=== PATIENT | male | born 1965 | race Caucasian/White ===

== ENCOUNTER 2017-11-09 02:52 | Emergency (ER) | payer OTHER ==
[~2017-11-09] VITALS: Ht 188 cm; Wt 88.5 kg
[2017-11-09] MEDS ORDERED: ONDANSETRON HCL INJ 2 MG/ML VIAL IV STA (03:15)
[2017-11-09] MEDS ORDERED: SODIUM CHLORIDE 0.9% 1000ML 1,000 ML IV SCH ×2 (03:15→04:15)
[2017-11-09] MEDS ORDERED: KETOROLAC TROMETHAMINE 30 MG/ML VIAL IV STA (03:20)
[2017-11-09] MEDS ORDERED: FENTANYL CITRATE/PF 100MCG/2 ML INJ IV ONE (04:30)
--- NOTE | 2017-11-09 05:08 | Diagnostic Imaging Report ---
EXAM: CT Abdomen and Pelvis WITH contrast INDICATION: Upper abdominal pain COMPARISON: None. TECHNIQUE: Abdomen and pelvis were scanned utilizing a multidetector helical scanner from the lung base to the pubic symphysis after administration of IV contrast. Coronal and sagittal reformations were obtained. Routine protocol was performed. Scan was performed when during portal venous phase. IV CONTRAST: 100 mL of Isovue-[id number] ORAL CONTRAST: Water RADIATION DOSE: Total DLP: 827.43 mGy*cm Estimated effective dose: (DLP x 0.015 x size factor) mSv COMPLICATIONS: None FINDINGS: LINES and TUBES: None. LOWER THORAX: Unremarkable HEPATOBILIARY: There is focal fatty infiltration adjacent to the falciform ligament. No focal hepatic lesions. No biliary ductal dilation. GALLBLADDER: No radio-opaque stones or sludge. No wall thickening. SPLEEN: No splenomegaly. PANCREAS: No focal masses or ductal dilatation. ADRENALS: No adrenal nodules KIDNEYS/URETERS: Kidneys enhance symmetrically. No hydronephrosis. No cystic or solid mass lesions. No stones. GI TRACT: No abnormal distention, wall thickening, or evidence of bowel obstruction. Appendix is normal. PELVIC ORGANS/BLADDER: Unremarkable. LYMPH NODES: No lymphadenopathy. VESSELS: There is mild atherosclerotic disease in the aorta and major arterial branches. PERITONEUM / RETROPERITONEUM: No free air or fluid. BONES: There are mild degenerative changes in the lumbar spine. SOFT TISSUES: Unremarkable. IMPRESSION: 1. No evidence of acute intra-abdominal or pelvic abnormality. Signed by: Dr. James Valenzuela M.D. on 11/09/2017 5:05 AM
[2017-11-09] MEDS ORDERED: FAMOTIDINE 20 MG/2 ML VIAL IV STA (05:20)
[2017-11-09 05:51] VITALS: BP 113/60
== END 2017-11-09 05:52 | disposition home or self-care (01) ==
LOC: FSED 02:52
DX: R10.13 Epigastric pain (principal); R11.10 Vomiting, unspecified
CPT/HCPCS: 74160; 80053; 80307; 81003; 82553; 84484; 85025; 93005; 99284; J1885; J2405